=== PATIENT | female | born 1955 | race Caucasian/White ===

== ENCOUNTER → 2019-11-09 17:07 | Outpatient (BNVA) | payer OTHER, SELFPAY | PROVIDERS: Visit Provider Nurse Practitioner Family | DX: M25.531 Pain in right wrist (principal) | CPT/HCPCS: 73100 ==

== ENCOUNTER 2019-11-11 12:54 | Outpatient (CLI) | payer OTHER, SELFPAY | END 2019-11-11 12:55 | disposition home or self-care (01) | LOC: SPT 12:54 | PROVIDERS: Visit Provider Specialist | DX: Z46.89 Encounter for fitting and adjustment of other specified devices (principal); S62.308D Unspecified fracture of other metacarpal bone, subsequent encounter for fracture with routine healing; X58.XXXD Exposure to other specified factors, subsequent encounter | CPT/HCPCS: L3984 ==

== ENCOUNTER 2019-11-24 22:38 | Emergency (ER) | payer OTHER, SELFPAY ==
[2019-11-24 22:42] VITALS: BP 136/96; PULSE 116; RESP 16; TEMP 36.7; O2SAT 95; BMI 26.5
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
[2019-11-25 01:24] VITALS: BP 132/90; PULSE 98; RESP 16; O2SAT 98
--- NOTE | 2019-11-25 11:16 | DCPLANNER ---
manager transition had message to schedule a follow up appointment for patient with Dr. Pastor, ENT. manager transition called the office of Dr. Pastor, gave clinic patients information, was asked to fax patients information to the clinic. manager transition faxed patients information to the clinic, will call for appointment information. Clinic will call patient with appointment information.
== END 2019-11-25 00:55 | disposition home or self-care (01) ==
PROVIDERS: Emergency Provider Physician Assistant
DX: S02.2XXA Fracture of nasal bones, initial encounter for closed fracture (principal); Y04.2XXA Assault by strike against or bumped into by another person, initial encounter; Y92.239 Unspecified place in hospital as the place of occurrence of the external cause; Y99.0 Civilian activity done for income or pay; F17.210 Nicotine dependence, cigarettes, uncomplicated
CPT/HCPCS: 12345; 70486; 72125; 99282; 99283

== ENCOUNTER → 2019-11-25 08:39 | Outpatient (BNVA) | payer OTHER, SELFPAY | PROVIDERS: Visit Provider Specialist | DX: S62.316A Displaced fracture of base of fifth metacarpal bone, right hand, initial encounter for closed fracture (principal); X58.XXXA Exposure to other specified factors, initial encounter | CPT/HCPCS: 73130 ==